=== PATIENT | female | born 1975 | race Caucasian/White ===

== ENCOUNTER 2019-10-14 10:27 | Day surgery (SDC) | payer OTHER, SELFPAY ==
[2019-10-07 11:47] LABS: Hematocrit 39.8 % (37-47); Hemoglobin 12.9 g/dL (12.0-15.0); Mean Corp Hgb Conc 32.4 g/dL (32-36); Mean Corpuscular Hgb 27.8 pg (27.0-32.0); Mean Corpuscular Volume 85.8 fL (81-99); Mean Platelet Vol. 9.9 fl (6.2-12.0); Platelet Count 321 K/mm3 (150-450); RBC Distribution Width CV 12.8 % (11.6-14.6); RBC Distribution Width SD 39.4 fl (35.1-43.9); Red Blood Count 4.64 M/mm3 (4.2-5.4); White Blood Count 8.3 K/mm3 (4.4-11.0)
--- NOTE | 2019-10-12 14:51 | PCM.HP.BLA ---
History and Physical Date of Admission: 10/14/19 Opal Keenan Physician Specialty: [employer]ER H&P Signed Encounter Date: 10/04/2019 Expand All Collapse All Hide copied text Frankie for details Batsheva Hampton is a 44 year old female who presents for Pre Op. Pt is scheduled for LAVH, Bilateral salpingectomy, Cystoscopy on 10/14/19. Pt declines further medical intervention- wants to proceed with surgical intervention at this time- has failed conservative mgmt with Mirena IUD, OCPs. ? PAST MEDICAL HISTORY PAST MEDICAL HISTORY Diagnosis Date ? History of laparoscopic cholecystectomy 2017 ? Hyperlipidemia ? PAST SURGICAL HISTORY PAST SURGICAL HISTORY Procedure Laterality Date ? CONIZATION OF CERVIX, LEEP ? 2007 ? CYST EXCISION ? 1994 ? left breast FAMILY HISTORY FAMILY HISTORY Problem Relation Age of Onset ? Hypertension Mother ? ? Diabetes Mother ? ? Hyperlipidemia Mother ? SOCIAL HISTORY Social History ? Tobacco Use ? Smoking status: Former Smoker ? Smokeless tobacco: Never Used Substance Use Topics ? Alcohol use: Yes ? ? Comment: occasional ? Drug use: Never CURRENT MEDICATIONS Current Outpatient Medications Medication Sig ? sertraline (ZOLOFT) 100 mg tablet TAKE ONE HALF TABLET BY MOUTH DAILY FOR 7 DAYS THEN TAKE 1 TABLET DAILY. ? ethinyl estradiol/drospirenone (DIANE, 28, ORAL) ? ? rosuvastatin (CRESTOR) 5 mg tablet rosuvastatin 5 mg tablet ? SUMAtriptan (IMITREX) 50 mg tablet sumatriptan 50 mg tablet as needed for migraines ? ALPRAZolam (XANAX) 0.5 mg tablet alprazolam 0.5 mg tablet one tablet as needed ? Ibuprofen 200 mg cap Take by mouth. ? No current facility-administered medications for this visit. Allergies As of Date: 10/04/2019 (Not on File) Fully Assessed 10/04/2019 ? REVIEW OF SYSTEMS Abdomen: no constipation or diarrhea Bladder: no dysuria.. Expanded ROS: denies CP, SOB dizziness Allergies and current medication updated:Yes ? EXAM: BP 126/82 Ht 5' 4 (1.63m) Wt 180 lb (81.6kg) LMP 09/13/2019 BMI 30.88 kg/(m^2). GENERAL: pleasant, female in no apparent distress HEENT: atraumatic NECK: full range of motion DERMATOLOGY: Normal, without lesions, non-icteric and non-hirsute NEURO: alert and oriented x3,exam grossly non-focal EXTREMITIES: normal ? ASSESSMENT AND PLAN: Encounter Diagnosis ? ? ICD-10-CM ? 1. Pre-op exam Z01.818 ? 2. Post-op pain G89.18 oxyCODONE-acetaminophen (PERCOCET) 5-325 mg tablet 3. POST OP MEDS GIVEN 4. ERAS protocol reviewed- will likely stay overnight due to time of surgery 5. Pt has been counseled on risks/benefits and alternatives of surgery including but not limited to anesthesia, bleeding, infection, injury to pelvic structures including bowel, bladder, ureters and vessels. Pt wishes to proceed with surgery at this time. 6. Consent signed. COVID testing reviewed ? Opal Quinonez MD ? Procedure Criteria Procedure Type: Elective COVID Risk Discussion: The surgeon/proceduralist and patient have discussed in detail the risk of exposure to and/or potential harm posed by the COVID-19 virus with having a surgery/procedure at this time versus the risk of delaying the surgery/procedure. It is not possible to know either the risk of delaying the surgery or procedure or chance of getting an infection with perfect accuracy, but a joint decision was made between the patient and the surgeon/proceduralist to proceed at this time with the scheduled surgery/procedure as indicated on the consent form.
[2019-10-14] VITALS (11 sets, daily range): BP systolic 85–132; BP diastolic 58–91; PULSE 61–114; RESP 16; TEMP 36.4–37.3; O2SAT 96–100; BMI 28.6
--- NOTE | 2019-10-14 | HYST_PTH ---
PATIENT: ANA MARÍA BROWN [place] [facility] [place][id number] AGE/SX: 44/F ROOM: RE10/14/[address]: Dr. Opal Quinonez, MDDOB: 1975 BED: DIS: 10/14/2019 SPEC #: [id number] RECD: 10/14/19 14:17 STATUS: BRANDON TANNER #: [id number] ARTEMIO: 10/14/19 00:[address]: Opal Quinonez DEPT: SURGICAL PATHOLOGY RECD BY: Richard Evans ENTERED: 10/15/19 07:57 SP TYPE: HYSTERECT OTHR DR: Criselda Garcia PA-C Tissues: Uterus, NOS Procedures: Surgery Specimen Level V HEADER OPERATION: ERAS, laparoscopic assisted vaginal hysterectomy, bilateral salpingectomy PRE-OP DIAGNOSIS: Pelvic pain, abnormal uterine bleeding TISSUE SUBMITTED: Uterus, cervix, bilateral fallopian tubes MICROSCOPIC DIAGNOSIS Uterus, hysterectomy: Cervix - nabothian cysts and mild chronic inflammation. Endometrium - weakly proliferative to inactive endometrium with cystic change. Myometrium - adenomyosis. Right fallopian tube - no pathologic change. Left fallopian tube - no pathologic change. AM:vishal 10/18/19 MICROSCOPIC DESCRIPTION Slides are reviewed. GROSS DESCRIPTION Received in fixative is one container labeled with the patient's name and designated uterus. The specimen consists of a uterus with attached cervix and attached right and left fallopian tubes. The uterus with cervix measures 9.5 x 7 x 4 cm and weighs 106.5 gm. The ectocervix is unremarkable. The cervical os is oval in contour. The endocervical canal measures 3.3 cm in length and is grossly unremarkable. The triangular endometrial cavity measures 3.6 x 3.5 cm. The velvety, light gutiérrez endometrium measures up to 0.3 cm in thickness. The myometrium measures 2 cm in average thickness and is free of mass lesions. The right and left fallopian tubes are similar in appearance with average lengths of 5.5 cm and average diameters of 0.6 cm. Both fallopian tubes are grossly unremarkable. Store Consultant sections are submitted as follows: 1 - anterior cervix, 2 - posterior cervix, 3 & 4 - anterior uterine wall, 5 & 6 - posterior uterine wall, 7 - right fallopian tube, 8 - left fallopian tube. / AM:vishal 10/15/19 TC:5 [facility]: [id number]
[2019-10-14] MEDS: Celecoxib 200 MG Capsule 400 MG PO (11:06)
[2019-10-14] MEDS: Scopolamine 1mg/72hr Patch 1 PATCH TRANSDERM. (11:07)
[2019-10-14] MEDS: Phenazopyridine 95 MG Tablet 190 MG PO (11:10)
[2019-10-14] MEDS: Enoxaparin 40 MG/0.4 ML Syringe SC (11:11)
[2019-10-14] MEDS: Lactated Ringers 1,000 ML 40 ML IV ×2 (11:11→15:25)
[2019-10-14 11:18] LABS: Internal QC Validated? YES +Cl - CLEAR BKGD; Pregnancy, Urine Negative Negative
[2019-10-14] MEDS: dexAMETHasone 10 MG/ML Vial 8 MG IV (11:21)
--- NOTE | 2019-10-14 12:01 | DCINST_ITS ---
Discharge Diet: No Restrictions Discharge Activity: Return to Normal Activity, May Not Drive - while taking narcotic pain medications., May Shower May resume sexual activity in: 6-8 weeks Lifting Restrictions: 20 Call your doctor if your incision/area has: Continuous Slow Oozing, Sudden Increased Bleeding, Increased Pain/ Swelling, Increased Redness, Foul Smelling Discharge Call your doctor if you observe: Fever of 101 or Higher, Inability to urinate, Inability to have a bowel movement, Using more than one pad per hour Cleanse incision/area with: - - you have skin glue over incision sites - dab dry. do not pick off glue. Allergies/Adverse Reactions: Allergies sertraline [From Zoloft] Adverse Reaction (Verified 10/14/19 10:33) Diarrhea DIZZY, NAUSEA STOPPED MED AND SIDE EFFECTS STOPPED Medications to take at Discharge ALPRAZolam [Xanax] 0.5 mg PO BID PRN PRN 10/07/19 Cholecalciferol (VIT D3) [Vitamin D] 1,000 unit PO DAILY 10/07/19 Ethinyl Estradiol/Drospirenone [Puja 28 Tablet] 1 ea PO DAILY 10/07/19 Ranitidine [Zantac] 150 mg PO DAILY 10/07/19 Rosuvastatin Calcium [Crestor] 5 mg PO QHS 10/07/19 Orders to be completed after discharge: Magnesium Time Frame: 10/07/19, Facility: [facility] [place], Location: Laboratory Primary Care Physician: Criselda Garcia PA-C [Primary Care Provider] - Test Results: Test results from this visit will be discussed in further detail at your follow- up appointment, if applicable. Please Follow Up With: Opal Quinonez MD When: 2 weeks as scheduled.
[2019-10-14] MEDS: Cefazolin 2 GM in 0.9% Normal Saline 100 ML IV (12:10)
[2019-10-14] MEDS: Bupivacaine Mpf 0.5% 30 ML VIAL (12:24)
[2019-10-14] MEDS: Lubricating Jelly 60 GM Tube 30 GM TOPICAL (12:25)
[2019-10-14] MEDS: Lactated Ringers 1,000 ML 70 ML IV (13:30)
--- NOTE | 2019-10-14 13:37 | OP.PCM_ITS ---
Report of Operation Date of Procedure: 10/14/19 Pre-Operative Diagnosis: AUB, PELVIC PAIN Post-Operative Diagnosis: SAME Surgery/Procedure Performed:: LAVH, BILATERAL SALPINGECTOMY , CYSTOSCOPY candy separator enrobing: Padma Gilmore Type of Anesthesia:: General Special Medications: 0.5% MARCAINE, 1% LIDOCAINE WITH EPINEPHRINE [id number] Specimen's removed: UTERUS, CERVIX, BILATERAL TUBES Drains: NONE Estimated Blood Loss (mL): 50 Fluids Replaced: 1100 Description of Procedure: Patient take to OR and prepped and draped in usual sterile fashion in dorsal lithotomy position with her arms tucked in a neurologically safe and neutral position. The [employer] uterine manipulator and guarddao were placed. Attention was turned to the abdomen. All port sites were infiltrated with 0.5%MARCAINE before the incisions were made. The anterior abdominal wall was tented up with towel clamps and using a direct entry approach a 5 mm supraumbilical port was placed. Intraperitoneal placement was confirmed with the laparoscope and the pneumoperitoneum was created. The patient was placed in Trendelenburg and 5 mm right and left lower quadrant ports were placed under direct visualization. The bowel was swept away. Ovaries appeared normal. The mesosalpinx starting at fibriated end were grasped, clamped, sealed and transected with the Ligasure. The round ligaments were divided. The anterior peritoneum was dissected down to create the bladder flap with blunt dissection and the LigaSure. The uterine arteries were isolated, clamped, sealed and cut. There was minimal back bleeding from the uterus. Attention was turned to the vaginal portion of the case. The anterior vagina was infiltrated w/ lidocaine with dilute epinephrine. A circumfrential incision was made with scapel, anterior colpotomy was made with blunt and sharp dissection. The posterior culdesac was entered sharpy with curved [place] scissors. Heny clamps were placed, pedicles were transected and suture ligated. this was performed on cardinal and uterosacral ligaments. Once the uterus was freed the specimen was removed without difficulty. The specimen was handed off. 2-0 PDS was used to perform modified mcalls - through the posterior vagina, uterosacral pedicles and anterior vagina. The cuff was closed with interrupted 0-vicryl figure of 8 sutures. Cystoscopy was performed- bladder intact and both ureters were noted with good jets appreciated The pneumoperitoneum was recreated and the cuff had scant oozing from posterior left aspect- this was coagulated by ligasure. pedicles were hemostatic. Alfred placed over cuff and pedicles. The ureters were both seen and peristalsing. The skin incisions were closed with skin glue and 3-0 monocryl. The vaginal sweep was completed by me. Grafts/Implants Used: none Grafts/Implants Used: none - Complications none - Admit VTE Documentation VTE Present on Admission: Yes VTE Mechan Device Prophylaxis: SCD's VTE Pharm Prophylaxis ordered?: Yes
[2019-10-14 14:11] LABS: Bedside Glucose 91 mg/dL (70-110)
[2019-10-14] MEDS: Ketorolac 30 MG/ML Syringe IV (14:15)
[2019-10-14] MEDS: oxyCODONE 5 MG Tablet PO (16:35)
[2019-10-14 17:08] LABS: Hematocrit 36.1 % (37-47); Hemoglobin 11.5 g/dL (12.0-15.0); Mean Corp Hgb Conc 31.9 g/dL (32-36); Mean Corpuscular Volume 87.8 fL (81-99); Mean Platelet Vol. 9.8 fl (6.2-12.0); Platelet Count 245 K/mm3 (150-450); RBC Distribution Width CV 13.2 % (11.6-14.6); RBC Distribution Width SD 41.4 fl (35.1-43.9); Red Blood Count 4.11 M/mm3 (4.2-5.4)
--- NOTE | 2019-10-14 18:25 | SUR.PHASEII ---
DR DODSON CALLED FOR CONDITION UPDATE, LAB RESULTS, STATES PATIENT MAY BE D/C HOME WHEN READY.
[2019-10-14] MEDS: Acetaminophen 500 MG Tablet 1000 MG PO (18:30)
== END 2019-10-14 18:59 | disposition home or self-care (01) ==
LOC: SDC 10:28 → AC 10:30
PROVIDERS: Anesthesiology; PCP Family Medicine; Referring Provider Obstetrics & Gynecology; Visit Provider Obstetrics & Gynecology
PROC: 0UT9FZZ Resection of Uterus, Via Natural or Artificial Opening With Percutaneous Endoscopic Assistance (ICD-10-PCS; CPT 58552; principal; 2019-10-14 12:05)
DX: N80.0 Endometriosis of uterus (principal); N88.8 Other specified noninflammatory disorders of cervix uteri; N72 Inflammatory disease of cervix uteri; E78.5 Hyperlipidemia, unspecified; K21.9 Gastro-esophageal reflux disease without esophagitis; F41.9 Anxiety disorder, unspecified; Z11.59 Encounter for screening for other viral diseases; Z87.891 Personal history of nicotine dependence; Z79.899 Other long term (current) drug therapy
CPT/HCPCS: 00840; 58552; 36415; 81025; 82962; 85027; 86850; 86900; 86901; 87635; 88307; G2023; J7120; J2405; U0003